=== PATIENT | female | born 1985 | race African-American/Black ===

== ENCOUNTER 2017-07-28 13:50 | Emergency (ER) | payer SELFPAY ==
[2017-07-28] MEDS ORDERED: Dexamethasone 4 mg/ml Vial ONE (14:18)
== END 2017-07-28 14:36 | disposition home or self-care (01) ==
LOC: ERS 13:50
DX: J02.0 Streptococcal pharyngitis (principal)
CPT/HCPCS: 99282; J1100

== ENCOUNTER 2017-08-23 06:57 | Emergency (ER) | payer SELFPAY ==
[2017-08-23] MEDS ORDERED: Bicillin LA 1.2 MILLION UNITS/2 ML SYRINGE ONE (07:16)
[2017-08-23] MEDS ORDERED: Acetaminophen 500 MG TAB ONE (07:16)
[2017-08-23] MEDS ORDERED: Dexamethasone 10 MG/ML VIAL ONE (07:16)
== END 2017-08-23 07:41 | disposition home or self-care (01) ==
LOC: ERS 06:57
DX: J02.0 Streptococcal pharyngitis (principal)
CPT/HCPCS: 87081; 87430; 96372; J0561; J1100

== ENCOUNTER 2019-02-11 14:00 | Emergency (ER) | payer SELFPAY | END 2019-02-12 03:47 | disposition left against medical advice (07) | LOC: ERS 14:00 | DX: Z53.21 Procedure and treatment not carried out due to patient leaving prior to being seen by health care provider (principal) ==

== ENCOUNTER 2020-03-22 09:08 | Inpatient (IN) | payer BC ==
[2020-03-22] MEDS ORDERED: Ondansetron PF 4 MG/2 ML Vial ONE ×3 (09:32→09:43)
[2020-03-22] MEDS ORDERED: Morphine 4 MG/ML VIAL ONE ×2 (09:32→12:36)
[2020-03-22 09:42] LABS: #Basophils 0.1 thou/uL (0.0-0.2); #Lymphocytes 2.9 thou/uL (1.20-3.40); #Monocytes 0.7 thou/uL (0.11-0.59); #Neutrophils 7.3 thou/uL (1.40-6.50); %Basophils 0.6 % (0.0-1.0); %Eosinophils 0.4 % (0.0-10.0); %Lymphocytes 26.3 % (21.0-51.0); %Monocytes 6.4 % (0.0-10.0); %Neutrophils 66.3 % (42.0-75.0); Hemoglobin 12.8 g/dL (12.0-16.0); Mean Corpuscular HGB CONC 33.6 g/dL (32.0-36.0); Mean Corpuscular Hemoglobin 31.2 pg (27.0-31.0); Mean Corpuscular Volume 92.8 fL (78.0-98.0); Mean Platelet Volume 8.1 fL (7.4-10.4); Platelet Count 269 thou/uL (130-400); RBC Distribution Width 11.7 % (11.5-14.5); Red Blood Cell (RBC) Count 4.09 mill/uL (4.20-5.40); White Blood Cell (WBC) Count 10.9 thou/uL (4.8-10.8)
[2020-03-22 10:09] LABS: BHCG - Serum Negative (NEGATIVE); Pregs Control Background? CLEAR/WHITE (CLR/WHITE); Pregs Control Bar Appear? YES (CONTROL BAR)
[2020-03-22 10:17] LABS: ALT (SGPT) 14 U/L (8-55); AST (SGOT) 16 U/L (5-34); Albumin 4.2 g/dL (3.5-5.0); Alkaline Phosphatase 64 U/L (40-110); Anion Gap 16 mmol/L (10-20); BUN (Urea Nitrogen) 6 mg/dL (7.0-18.7); Bilirubin, Total 0.5 mg/dL (0.2-1.2); Calc. Creatinine Clearance 0 mL/min (70-130); Calcium 9.2 mg/dL (7.8-10.44); Carbon Dioxide 20 mmol/L (22-29); Chloride 105 mmol/L (98-107); Globulin 3.5 g/dL (2.4-3.5); Glucose 100 mg/dL (70-105); Lipase 15 U/L (8-78); Potassium 3.8 mmol/L (3.5-5.1); Protein, Total 7.7 g/dL (6.0-8.3); Sodium 137 mmol/L (136-145)
--- NOTE | 2020-03-22 10:27 | ULT ---
US Gallbladder RUQ: 03/22/2020 9:35 AM CLINICAL HISTORY: Right upper quadrant abdominal pain. STUDY: Limited right upper quadrant ultrasound of abdomen. COMPARISON: None. FINDINGS: Liver: Size: Normal. Echogenicity: Normal. Contour: Smooth. Mass: None. Bile ducts: No intrahepatic or extrahepatic biliary dilatation. Common bile duct measures 6 mm. Gallbladder: Cholelithiasis. A positive sonographic Gracia's sign was reported by the technologist. N o pericholecystic fluid is seen. Pancreas: Limited visualization of pancreas is unremarkable. Right kidney: No pelvicalyceal dilatation. Right kidney measuring 11.0 cm in length. IMPRESSION: Cholelithiasis with findings suggesting acute cholecystitis. Correlate with white count and LFTs.
[2020-03-22 10:44] LABS: Bacteria/HPF None Seen HPF (None Seen); Bilirubin Negative (Negative); Blood, Urine Negative (Negative); Clarity Clear (Clear); Glucose, Urine (Dipstick) Normal (Negative); Ketone, Urine Trace mg/dL (Negative); Leukocyte 75 Leu/uL (Negative); Nitrite Negative (Negative); Protein, Urine (Dipstick) Negative (Neg-Trace); RBC/HPF 0-3 HPF (0-3); Specific Gravity, Urine 1.012 (1.002-1.036); Squamous Epithelial 0-3 HPF (0-3); Urobilinogen Normal mg/dL (Less than 2); pH, Urine 8.5 (5.0-9.0)
[2020-03-22] MEDS ORDERED: Ketorolac Tromethamine 30 MG/ML VIAL ONE (12:04)
--- NOTE | 2020-03-22 12:38 | HP ---
HISTORY OF PRESENT ILLNESS: Ms. Dang is a 34-year-old morbidly obese woman, G7, P5. The patient presented with recurrent postprandial epigastric right upper quadrant abdominal pain of 3 days' duration. Pain is associated with multiple episodes of nausea and nonbilious emesis. She admits to abdominal bloating and chills, but no fever. Last bowel movement was last night and it was normal. Last meal was last night where she took one bite of a piece of fish and was unable to keep that down. PAST MEDICAL HISTORY: She denies any previous medical problems. PAST SURGICAL HISTORY: Pertinent for childhood appendectomy at age 7 as well as bilateral tubal ligations. SOCIAL HISTORY: She is , lives at home with her children, currently unemployed. She denies any cigarette smoking, ethanol, or illicit drug abuse. FAMILY HISTORY: Notable for multiple members of extended family from her father's side with diabetes mellitus and cancer. From her mother's side, various family members have venous thromboembolism as well as lung disease. CURRENT MEDICATIONS: None. ALLERGIES: THE PATIENT DENIES ANY KNOWN DRUG ALLERGIES. REVIEW OF SYSTEMS: Ten-point review of systems essentially unremarkable except as stated in past medical history and chief complaint. PHYSICAL EXAMINATION: GENERAL: This reveals a 34-year-old obese woman, who is otherwise in no acute distress at the time of my evaluation. VITAL SIGNS: Today include blood pressure 158/112, pulse 127. This vital signs was prior to medication. Following medication, her blood pressure is 108/84, heart rate is 60, respiratory rate is 16, temperature 98.4 degrees Fahrenheit, oxygen saturation is 100% on room air. HEENT: Reveals normocephalic and atraumatic. Pupils are equal, round, reactive to light and accommodation. She has no scleral icterus present. HEART: Reveals regular rate and rhythm. No murmurs or gallops auscultated. LUNGS: Clear to auscultation bilaterally. Breathing, regular and nonlabored. ABDOMEN: Soft and obese. She has right upper quadrant tenderness to palpation. Liver and spleen nonpalpable below costal margin. NEUROLOGIC: Reveals no focal deficits present. LABORATORY FINDINGS: Today include a CBC with 10,900 white blood cells, hemoglobin and hematocrit 12.8 and 38.0 respectively. Platelet count is 269,000. Metabolic profile; sodium 137, potassium 3.8, chloride is 105, bicarb is 20, BUN 6, creatinine 0.71, glucose 100. LFTs are normal with a total bilirubin of 0.5, AST and ALT 16 and 14 respectively. Serum lipase is normal at 15. test is negative. I have personally reviewed the abdominal ultrasound, which is remarkable for multiple intraluminal gallstones with slightly thickened gallbladder wall at 4 mm. Common bile duct size is dilated for this patient's age at 6.2 mm. IMPRESSION: Acute cholecystitis with cholelithiasis and possible choledocholithiasis, although, I suspect that the common bile duct dilatation is likely secondary to extrinsic compression of the common bile duct gallbladder. RECOMMENDATIONS: I gave the patient two options. One is conservative management, which involves bland diet and analgesia, which the patient promptly declined. Alternatively, we will proceed with laparoscopic cholecystectomy with intraoperative cholangiogram. I have advised the patient of the risks and benefits of the proposed surgery to include, but not limited to bleeding, infection, injury to bile duct or surrounding structures. The patient indicates understanding of information I have provided her today in the presence of her nurse. She has granted consent for this admission and surgical intervention. Job ID: [id number]
[2020-03-22] MEDS ORDERED: Bupivacaine 0.25% HCL 30 ML VIAL ONE (16:39)
[2020-03-22] MEDS ORDERED: Iothalamate Meglumine 60% 50 ML VIAL FS ONE (16:39)
[2020-03-22] MEDS ORDERED: Lidocaine 1% w/Epinephrine 1:100K 20 ML VIAL ONE (16:39)
[2020-03-22 16:51] LABS: SARS-CoV-2 MS2 Positive; SARS-CoV-2 N Gene Negative; SARS-CoV-2 S Gene Negative; SARS-CoV-2 by NAA Not Detected (NotDetected); SARS-CoV-2 orf1ab Negative
[2020-03-22] MEDS ORDERED: Ondansetron PF 4 MG/2 ML Vial IVP PRN (17:19)
[2020-03-22] MEDS ORDERED: Dextrose 50% Abboject 50 ML SYRINGE SLOW IVP PRN (17:19)
[2020-03-22] MEDS ORDERED: Morphine 2 MG/ML VIAL SLOW IVP PRN (17:19)
[2020-03-22] MEDS ORDERED: Morphine 4 MG/ML VIAL SLOW IVP PRN (17:19)
[2020-03-22] MEDS ORDERED: Dextrose 5% in Water 1,000 ML IV PRN (17:19)
[2020-03-22] MEDS ORDERED: traMADol HCl 50 MG TAB PO PRN ×2 (17:24)
[2020-03-22 20:32] VITALS: BMI 38.2
[2020-03-22] MEDS: Sodium Chloride 0.9% 1,000 ML IV SCH (20:33)
[2020-03-22] MEDS: Famotidine/PF 20 mg/2ml Vial SLOW IVP SCH (20:33)
[2020-03-22] MEDS ORDERED: Enoxaparin Sodium 40 MG/0.4 ML SYRINGE SC SCH (21:00)
[2020-03-22] MEDS: Acetaminophen 500 MG TAB PO SCH (23:31)
--- NOTE | 2020-03-23 04:22 | PRG ---
DATE OF SERVICE: 03/22/2020 SUBJECTIVE: Patient was seen this evening during rounds. She was lying in bed, resting comfortably and asleep with no signs of acute distress. Nursing reported no acute events. OBJECTIVE: VITAL SIGNS: Temperature 98.4, pulse 57, respirations 18, oxygen saturation 99% on room air, blood pressure 112/67. GENERAL: Well-appearing young female, lying in bed, resting comfortably and asleep with no signs of acute distress. ASSESSMENT: Acute cholecystitis and cholelithiasis. PLAN: N.p.o. at midnight. Continue IV fluids. Continue antibiotics. The patient to go to the OR in the morning with Dr. Quezada for lap mari with intraoperative cholangiogram. Job ID: [id number]
[2020-03-23] MEDS: Sodium Chloride 0.9% 1,000 ML IV SCH ×2 (05:27→16:43)
[2020-03-23] MEDS: Acetaminophen 500 MG TAB PO SCH ×2 (05:27→13:09)
[2020-03-23 06:48] LABS: #Eosinphils 0.1 thou/uL (0.0-0.7); #Lymphocytes 2.1 thou/uL (1.20-3.40); #Monocytes 0.5 thou/uL (0.11-0.59); #Neutrophils 2.6 thou/uL (1.40-6.50); %Basophils 0.1 % (0.0-1.0); %Eosinophils 1.7 % (0.0-10.0); %Lymphocytes 39.3 % (21.0-51.0); %Monocytes 8.9 % (0.0-10.0); %Neutrophils 49.9 % (42.0-75.0); Hemoglobin 10.8 g/dL (12.0-16.0); Mean Corpuscular HGB CONC 32.9 g/dL (32.0-36.0); Mean Corpuscular Volume 94.1 fL (78.0-98.0); Mean Platelet Volume 8.5 fL (7.4-10.4); Platelet Count 200 thou/uL (130-400); RBC Distribution Width 11.8 % (11.5-14.5); Red Blood Cell (RBC) Count 3.48 mill/uL (4.20-5.40); White Blood Cell (WBC) Count 5.2 thou/uL (4.8-10.8)
[2020-03-23] MEDS ORDERED: Lidocaine 1% w/Epinephrine 1:100K 20 ML VIAL ONE (07:02)
[2020-03-23 07:12] LABS: Phosphorus 3.8 mg/dL (2.3-4.7)
[2020-03-23 07:25] LABS: ALT (SGPT) 12 U/L (8-55); AST (SGOT) 13 U/L (5-34); Albumin 3.3 g/dL (3.5-5.0); Alkaline Phosphatase 50 U/L (40-110); Anion Gap 12 mmol/L (10-20); BUN (Urea Nitrogen) 5 mg/dL (7.0-18.7); Bilirubin, Total 0.6 mg/dL (0.2-1.2); Calc. Creatinine Clearance 207 mL/min (70-130); Calcium 7.8 mg/dL (7.8-10.44); Carbon Dioxide 23 mmol/L (22-29); Chloride 108 mmol/L (98-107); Globulin 2.6 g/dL (2.4-3.5); Glucose 101 mg/dL (70-105); Lipase 20 U/L (8-78); Magnesium 1.6 mg/dL (1.6-2.6); Potassium 3.3 mmol/L (3.5-5.1); Protein, Total 5.9 g/dL (6.0-8.3); Sodium 140 mmol/L (136-145)
[2020-03-23] MEDS ORDERED: Iothalamate Meglumine 60% 50 ML VIAL FS ONE (09:07)
[2020-03-23] MEDS ORDERED: Bupivacaine 0.25% HCL 30 ML VIAL ONE (09:07)
[2020-03-23] MEDS ORDERED: Fentanyl 100 MCG/2 ML VIAL ONE ×3 (09:12→12:12)
[2020-03-23] MEDS ORDERED: Famotidine/PF 20 mg/2ml Vial ONE (09:12)
[2020-03-23] MEDS ORDERED: SUGAMMADEX SODIUM 200 MG/2 ML VIAL ONE (09:23)
[2020-03-23] MEDS: Famotidine/PF 20 mg/2ml Vial SLOW IVP SCH (11:17)
[2020-03-23] MEDS ORDERED: Promethazine HCl 25 MG/ML VIAL IM PRN (11:42)
[2020-03-23] MEDS ORDERED: Ondansetron HCl/PF 4 MG/2 ML Vial IVP PRN (11:42)
[2020-03-23] MEDS ORDERED: Promethazine HCl 25 MG/ML VIAL SLOW IVP PRN (11:42)
[2020-03-23] MEDS ORDERED: Meperidine HCl/PF 25 MG/ML VIAL SLOW IVP PRN (11:42)
[2020-03-23] MEDS ORDERED: Lidocaine 1% PF 5 ML VIAL ONE (11:56)
[2020-03-23] MEDS ORDERED: PROPOFOL 200 MG/20 ML VIAL ONE (11:56)
[2020-03-23] MEDS ORDERED: Ketorolac Tromethamine 30 MG/ML VIAL ONE (11:56)
[2020-03-23] MEDS ORDERED: Ondansetron PF 4 MG/2 ML Vial ONE (11:56)
[2020-03-23] MEDS ORDERED: Metoclopramide HCl 10 MG/2 ML VIAL ONE (11:56)
[2020-03-23] MEDS ORDERED: Rocuronium Bromide 10 MG/ML (10ML VIAL) ONE (11:56)
[2020-03-23] MEDS ORDERED: Meperidine HCl/PF 25 MG/ML VIAL ONE (12:04)
--- NOTE | 2020-03-23 12:32 | OP ---
DATE OF PROCEDURE: 03/23/2020 PREOPERATIVE DIAGNOSES: 1. Acute cholecystitis with cholelithiasis. 2. Dilated common bile duct suspicious for choledocholithiasis. POSTOPERATIVE DIAGNOSES: 1. Acute cholecystitis with cholelithiasis. 2. Dilated common bile duct suspicious for choledocholithiasis. PROCEDURE PERFORMED: Laparoscopic cholecystectomy with intraoperative cholangiogram. ANESTHESIA: General endotracheal. ESTIMATED BLOOD LOSS: 10 mL. FLUIDS GIVEN: 1500 mL crystalloids. COUNTS: Sponge and instrument counts were verified as correct x2. COMPLICATIONS: None apparent at the time of operation. INDICATIONS FOR OPERATION: A 34-year-old morbidly obese woman, presented with recurrent epigastric right upper quadrant abdominal pain. Clinical and radiographic examination were consistent with acute cholecystitis with cholelithiasis, for which the patient was brought to the operating room for cholecystectomy. Preoperative workup also revealed a dilated common bile duct at 6.2 mm. Choledocholithiasis suspected warranting intraoperative cholangiogram. Findings are consistent with contracted gallbladder in the usual anatomic location, completely encased by omental adhesions. The gallbladder was packed full of stones. Cholangiography also reveals no ductal filling defects to suggest choledocholithiasis. DESCRIPTION OF OPERATION: Informed consent was obtained from the patient, brought to the operating room, and placed in supine position. Following general anesthesia, abdomen was sterilely prepped and draped in usual fashion. The skin below the umbilicus was infiltrated with 0.25% Marcaine with epinephrine. A small curvilinear infraumbilical incision was made using 11 scalpel. Umbilical stalk was grasped with Eder and elevated. Veress needle was inserted through the incision and placed in peritoneal cavity, through which the abdomen was insufflated with 3 L of CO2 gas. Intraabdominal pressure was noted at 2 mmHg. Following abdominal insufflation, Veress needle was removed. A 5 mm trocar introduced using a Visiport under laparoscopy. Laparoscopy confirmed proper placement of the port. No injuries to underlying structures. Additional laparoscopy reveals the right upper quadrant completely encased by omental adhesions. Under direct laparoscopy, a 12 mm epigastric and two 5 mm right lateral subcostal ports were placed after the overlying skin infiltrated with 0.25% Marcaine with epinephrine. Appropriate incision was made. The patient was placed in a reverse Trendelenburg position, rotated to her left. I introduced a [place] dissector through the epigastric port site, using this to take down omental adhesions bluntly. Bleeding points controlled with cautery. A Prestige grasper was then introduced through the right lateral subcostal port grasping the fundus of the gallbladder, which was elevated cephalad. Omental adhesions were then dissected off the remainder of the gallbladder bluntly. A second Prestige grasper was introduced through the right medial subcostal port grasping the Carissa pouch, which was retracted laterally. I then opened the peritoneum of the gallbladder infundibulum, and cystic duct and arteries were individually dissected free from surrounding structures. Critical view of the triangle of Calot was obtained. At this juncture, I placed one clip at the junction of the cystic duct and gallbladder. Cystotomy was made proximal to this securing clip, and a cholangiocatheter catheter was introduced into the cystic duct lumen and secured with a single clip. Cholangiogram was completed using 10 mL of Conray contrast with total fluoroscopy time of 15 seconds. No ductal filling defects were noted. Following cholangiography, the securing clip was removed, and the cholangiocatheter was removed from the peritoneal cavity. The cystic duct was then divided between clips applying 2 clips proximally. The cystic artery was divided between clips. Two clips applied proximally and 1 clip at the junction of the cystic artery and gallbladder. The gallbladder itself was removed from the liver bed using cautery and delivered off the abdominal cavity using an EndoCatch. Operative site inspected for good hemostasis. Clips remained in place. No bile stains present. Finding no other pathology, laparoscopy was terminated. Fascia of the epigastric port was closed using 0 Vicryl suture and Endo Closure device under the laparoscopy. The abdomen was desufflated. All ports and instruments removed and accounted for. Skin incisions were closed using 4-0 Monocryl suture in subcuticular fashion. Dermabond was applied over incisional closure. The patient tolerated the operation without any apparent complication and was returned to recovery room in satisfactory condition. Job ID: [id number]
--- NOTE | 2020-03-23 15:08 | RAD ---
OPERATIVE CHOLANGIOGRAM: 03/23/20 Three fluoroscopic images from operative cholangiogram performed in the OR are presented. INDICATION: Intraoperative imaging during intraoperative cholangiogram procedure with cholecystectomy. FINDINGS/IMPRESSION: These images demonstrate opacification of the common bile duct. No filling defect identified. POS: AGW
[2020-03-23] MEDS ORDERED: Ibuprofen 600 MG TAB PO PRN (20:00)
[2020-03-23 20:16] VITALS: BP 120/69; TEMP 98.2
--- NOTE | 2020-03-26 15:22 | EKG ---
Test Reason : Blood Pressure : / mmHG Vent. Rate : 063 BPM Atrial Rate : 063 BPM P-R Int : 130 ms QRS Dur : 082 ms QT Int : 402 ms P-R-T Axes : 035 065 050 degrees QTc Int : 411 ms Normal sinus rhythm Normal ECG Confirmed by ASTRID SUH, MATHEW ([id number]), publication editor CONNER CASTILLO ([id number]) on 03/26/2020 3:21:49 PM Referred By: Confirmed By:MATHEW RESENDIZ MD
== END 2020-03-23 18:22 | disposition home or self-care (01) | DRG 419 ==
LOC: ERS 09:08 → SDC 14:36 → SURG B 15:00 → SDC 19:00
PROVIDERS: ADMIT Surgery; ATTEND Surgery
PROC: 0FT44ZZ Resection of Gallbladder, Percutaneous Endoscopic Approach (ICD-10-PCS; principal; 2020-03-23)
PROC: BF101ZZ Fluoroscopy of Bile Ducts using Low Osmolar Contrast (ICD-10-PCS; 2020-03-23)
DX: K80.00 Calculus of gallbladder with acute cholecystitis without obstruction (principal); F41.9 Anxiety disorder, unspecified; F32.9 Major depressive disorder, single episode, unspecified; E66.01 Morbid (severe) obesity due to excess calories; Z20.828 Contact with and (suspected) exposure to other viral communicable diseases; Z90.49 Acquired absence of other specified parts of digestive tract; Z98.51 Tubal ligation status; Z68.38 Body mass index [BMI] 38.0-38.9, adult
CPT/HCPCS: 36415; 47532; 76705; 80053; 81003; 81015; 83690; 83735; 84100; 84703; 85025; 86850; 86900; 86901; 87635; 88304; 93005; 96365; 96375; 96376; J0690; J1610; J1650; J1885; J2175; J2270; J2405; J2704; J2765; J3010; S0020; S0028; U0003

== ENCOUNTER 2021-01-12 10:41 | Emergency (ER) | payer BC | END 2021-01-12 12:30 | disposition home or self-care (01) | LOC: ERS 10:41 | DX: S70.12XA Contusion of left thigh, initial encounter (principal); X58.XXXA Exposure to other specified factors, initial encounter | CPT/HCPCS: 99284 ==